=== PATIENT | male | born 1950 | race Caucasian/White ===

== ENCOUNTER → 2023-08-06 | Outpatient (CLI) | payer MEDICARE, MEDICAID | END | disposition home or self-care (01) | LOC: RAD 15:05 | PROVIDERS: ATTEND Nurse Practitioner Family | DX: N20.0 Calculus of kidney (principal); R33.9 Retention of urine, unspecified; N40.0 Benign prostatic hyperplasia without lower urinary tract symptoms; N32.89 Other specified disorders of bladder | CPT/HCPCS: 76770 ==

== ENCOUNTER 2023-12-10 07:03 | Day surgery (SDC) | payer MEDICARE, MEDICAID ==
[2023-12-09 12:03] LABS: BASOPHILS % (AUTO) 0.5 % (0-1); EOSINOPHILS # (AUTO) 0.1 X10'3 (0-0.9); EOSINOPHILS % (AUTO) 1.3 % (0-6); LYMPHOCYTES # (AUTO) 1.3 X10'3 (1.1-4.8); LYMPHOCYTES % (AUTO) 16.8 % (21-51); MEAN CORPUSCULAR HEMOGLOBIN 32.2 PG (27.0-31.0); MEAN CORPUSCULAR HGB CONC 34.6 g/dL (33.0-36.5); MEAN CORPUSCULAR VOLUME 93.2 FL (78-98); MEAN PLATELET VOLUME 8.5 FL (7.4-10.4); MONOCYTES # (AUTO) 0.6 X10'3 (0-0.9); MONOCYTES % (AUTO) 8.4 % (2-12); NEUTROPHILS # (AUTO) 5.5 X10'3 (1.8-7.7); PRE OP HEMATOCRIT 46.4 % (42.0-52.0); PRE OP PLATELET COUNT 137 X10'3 (140-440); PRE OP WHITE BLOOD COUNT 7.5 10'3 (4.8-10.8); RED BLOOD COUNT 4.98 X10'6 (4.70-6.10); RED CELL DISTRIBUTION WIDTH 13.2 % (11.5-14.5)
[2023-12-09 12:06] LABS: ALBUMIN 3.5 G/DL (3.4-5.0); ALBUMIN/GLOBULIN RATIO 0.9 (1.1-1.5); ALKALINE PHOSPHATASE 54 IU/L (46-116); BLOOD UREA NITROGEN 15 MG/DL (7-18); CALCIUM 8.9 MG/DL (8.5-10.1); CHLORIDE 107 MMOL/L (99-107); CREATININE 1.15 MG/DL (0.60-1.10); PRE OP ALT 28 U/L (30-65); PRE OP ANION GAP 7 (8-16); PRE OP AST 18 U/L (10-37); PRE OP BILIRUB, TOTAL 0.7 MG/DL (0.0-1.0); PRE OP GLUCOSE 119 MG/DL (70-104); PRE OP POTASSIUM 3.9 MMOL/L (3.4-5.1); PRE OP SODIUM 139 MMOL/L (135-145); TOTAL CARBON DIOXIDE 24.6 MMOL/L (24-32); TOTAL PROTEIN 7.2 G/DL (6.4-8.2); eGFR 62 ML/MIN
[2023-12-10] VITALS (7 sets, daily range): BP systolic 134–151; BP diastolic 65–86; PULSE 51–66; RESP 11–19; TEMP 97.6; O2SAT 92–98
[~2023-12-10] VITALS: Ht 177.8 cm; Wt 157.5 kg
[2023-12-10] MEDS: Cefazolin 3 GM/100ML NS IVPB 100 ML IV ONE (05:30)
[~2023-12-10 07:03] MED LIST: ACET-1025 PO; ALBU18HF2 INH; LORA10CA PO
[2023-12-10] MEDS: famotidine 20mg tablet PO ONE (08:17)
[2023-12-10] MEDS: ringers solution, lacted 1,000 ML IV SCH (08:18)
[2023-12-10] MEDS ORDERED: BUPIVAcaine 2.5mg/ml inj 50ml vial (contains preservative) ONE (08:50)
[2023-12-10] MEDS ORDERED: bacitracin 15gm ointment TP ONE (08:50)
[2023-12-10] MEDS ORDERED: sevoflurane 250ml liquid IH ONE (09:15)
[2023-12-10] MEDS ORDERED: fentaNYL/PF 50MCG/1 ML 2ML syringe ONE (09:20)
[2023-12-10] MEDS ORDERED: midazolam 1 mg/ML 2ml injection ONE (09:21)
[2023-12-10] MEDS ORDERED: morphine 2 MG/ML inj. syringe IV PRN (09:35)
[2023-12-10] MEDS ORDERED: labetalol 20mg/4ml (5mg/ml) syringe IV PRN (09:35)
[2023-12-10] MEDS ORDERED: proCHLORperazine 10 MG/2 ml inj IV PRN (09:35)
[2023-12-10] MEDS ORDERED: meperidine/PF 25mg/ml syringe IV PRN ×3 (09:35)
[2023-12-10] MEDS ORDERED: ondansetron/PF 4mg/2ml inj IV PRN (09:35)
[2023-12-10] MEDS ORDERED: acetaminophen 1,000mg/100ml IV 100 ML IV ONE (09:35)
[2023-12-10] MEDS ORDERED: ringers solution, lacted 1,000 ML IV SCH (09:35)
[2023-12-10] MEDS ORDERED: morphine 4 MG/ML inj SYRINge IV PRN (09:35)
[2023-12-10] MEDS ORDERED: hydrALAZINE 20mg/ml inj. IV PRN (09:35)
[2023-12-10] MEDS ORDERED: propofol inj 20 ML IV ONE (09:50)
[2023-12-10] MEDS ORDERED: dexamethasone sod phosphate 4mg/ml inj. ONE (09:50)
[2023-12-10] MEDS ORDERED: ondansetron/PF 4mg/2ml inj ONE (09:50)
[2023-12-10] MEDS ORDERED: LIDOcaine 2% (20mg/ml) 5ml vial ONE (09:50)
[2023-12-11 13:11] LABS: % FREE PSA 27.1 % (.); PROSTATE SPECIFIC AG, SERUM 5.2 ng/mL (0.0-4.0); PSA, FREE 1.41 ng/mL
== END 2023-12-10 11:15 | disposition home or self-care (01) ==
LOC: PAS 07:03
PROVIDERS: ATTEND Urology
DX: N43.0 Encysted hydrocele (principal); I10 Essential (primary) hypertension; E66.9 Obesity, unspecified; G47.33 Obstructive sleep apnea (adult) (pediatric); I25.2 Old myocardial infarction; J45.909 Unspecified asthma, uncomplicated; M19.90 Unspecified osteoarthritis, unspecified site; Z87.442 Personal history of urinary calculi; Z87.891 Personal history of nicotine dependence; Z79.899 Other long term (current) drug therapy; Z96.653 Presence of artificial knee joint, bilateral; Z98.890 Other specified postprocedural states; Z68.42 Body mass index [BMI] 45.0-49.9, adult; Z80.51 Family history of malignant neoplasm of kidney
CPT/HCPCS: 36415; 54512; 55040; 80053; 82948; 84153; 84154; 85025; 93005; A4215; A4618; A7000; J0690; J1100; J2003; J2250; J2405; J2704; J3010; J3490; J7030; J7120; Z7506; Z7512; Z7610